=== PATIENT | male | born 1930 | race Caucasian/White ===

== ENCOUNTER 2016-03-12 09:01 | Inpatient (IN) | payer BC, OTHER ==
[~2016-03-12] VITALS: Ht 177.8 cm; Wt 88.6 kg
[~2016-03-12 09:01] MED LIST: ASPIRIN81 M1 PO; AVAPRO150 MG PO; CELEBREX200 MG; HYDROCODON-ACE1 EAC8 PO; PREVACID15 MG PO; TOPROL XL50 MG PO; ZOCOR80 M1 PO; [UNRECOGNIZED DRUG - OTHER] PO
[2016-03-12 09:49] LABS: HEMATOCRIT 41.8 % (38.0-50.0); MCH 32.7 PG (29.0-34.0); MCHC 33.5 G/DL (30.0-36.0); MCV 97.7 FL (86-99); MEAN PLAT.VOLUME 10.8 uM^3 (9.0-12.4); PLATELET COUNT 184 K/uL (156-360); RBC DIS.WIDTH-CV 13.8 % (11.8-14.6); RBC DIS.WIDTH-SD 47.7 % (39-53); RED BLOOD COUNT 4.28 M/uL (4.00-5.50); WHITE BLOOD COUNT 7.8 K/uL (4.1-10.2)
[2016-03-12 09:50] LABS: BASOPHIL COUNT 0.1 K/uL (0-0.1); EOSINOPHIL (%) 3.5 % (0-5); EOSINOPHIL COUNT 0.3 K/uL (0-0.3); IMMATURE GRANULOCYTE (%) 1.4 % (0.0-0.7); IMMATURE GRANULOCYTE COUNT 1.1 K/uL; LYMPHOCYTE COUNT 1.1 K/uL (1.0-2.8); MONOCYTE (%) 17.5 % (3-12); MONOCYTE COUNT 1.4 K/uL (0-0.8); NEUTROPHIL COUNT 4.9 K/uL (1.8-6.4)
[2016-03-12 10:00] LABS: ADD MIUA? NO; BILIRUBIN NEGATIVE; BLOOD NEGATIVE; COLOR YELLOW ((YELLOW)); GLUCOSE (STRIP) NEGATIVE; KETONES NEGATIVE; LEUKOCYTES NEGATIVE; NITRITE NEGATIVE; PROTEIN (STRIP) TRACE; SPECIFIC GRAVITY 1.015 (1.000-1.030); UCUL ADDED? NO; UROBILINOGEN 0.2 MG/DL (0.2-1.0)
[2016-03-12 10:00] LABS: INTER. NORMALIZED RATIO 1.1; PROTHROMBIN TIME 10.7 (9.2-11.2); PTT 27.1 (25-32)
[2016-03-12 10:09] LABS: AMPHETAMINE NEGATIVE (500 ng/mL); BARBITURATES NEGATIVE (200 ng/mL); BENZODIAZEPINES NEGATIVE (150 ng/mL); COCAINE NEGATIVE (150 ng/mL); INTERNAL CONTROLS VALID? YES; METHADONE NEGATIVE (200 ng/mL); METHAMPHETAMINE NEGATIVE (500 ng/mL); OPIATES (MORPHINE) NEGATIVE (100 ng/mL); OXYCODONE NEGATIVE (100 ng/mL); PHENCYCLIDINE NEGATIVE (25 ng/mL); PROPOXYPHENE NEGATIVE (300 ng/mL); THC CANNABINOIDS NEGATIVE (50 ng/mL); TRICYCLIC ANTIDEPRESSANTS NEGATIVE (300 ng/mL)
[2016-03-12 10:09] LABS: AMYLASE 55 IU/L (1-118); CHLORIDE 107 mEq/L (99-109); POTASSIUM 4.2 mEq/L (3.7-5.4); SODIUM 140 mEq/L (136-147)
[2016-03-12 10:10] LABS: GLUCOSE 64 mg/dL (70-99); TROP-I INTERPRETATION NEGATIVE; TROPONIN-I 0.01 ng/mL (0.0-0.30)
[2016-03-12 10:12] LABS: ANION GAP 8 MEQ/L (2-14)
[2016-03-12 10:14] LABS: GFR ESTIMATE (CALCULATED) > 59 mL/min/; SERUM ETHYL ALCOHOL < 10 mg/dL
[2016-03-12 10:15] LABS: SERUM ETHYL ALCOHOL < 10 mg/dL; UREA NITROGEN (BUN) 25 mg/dL (9-23)
[2016-03-12 10:17] LABS: LIPASE 12 U/L (1.0-51.0)
[2016-03-12] MEDS ORDERED: LOPRESSOR50 MG PO (11:17)
[2016-03-12] MEDS ORDERED: FINASTERIDE5 MG PO (11:17)
[2016-03-12] MEDS ORDERED: LASIX20 MG PO (11:17)
[2016-03-12] MEDS ORDERED: LIPITOR40 MG PO (11:18)
[2016-03-12] MEDS ORDERED: LYRICA50 MG PO (11:19)
[2016-03-12] MEDS ORDERED: ATROVENT H200 INHALA IH (11:19)
[2016-03-12] MEDS ORDERED: BREO ELLIPTA 21 EACH IH (11:20)
[2016-03-12] MEDS ORDERED: SINGULAIR10 MG PO (11:20)
[2016-03-12] MEDS ORDERED: BENZONATATE100 MG PO (11:20)
[2016-03-12] MEDS ORDERED: CLONIDINE HCL0.1 MG PO (11:21)
[2016-03-12] MEDS ORDERED: VITAMIN B12 100MCG PO (11:21)
[2016-03-12] MEDS ORDERED: AMLODIPINE BESYL5 MG PO (11:21)
[2016-03-12 12:15] LABS: POINT-OF-CARE METER ID UU13113702; POINT-OF-CARE USER ID NUTJLF39
[2016-03-12 13:07] LABS: HDL CHOLESTEROL 31 MG/DL (Desirable>=40); LDL CHOLESTEROL 61 mg/dL (Desirable<100); NON-HDL CHOLESTEROL 74 mg/dL (Desirable<160); TOTAL CHOLESTEROL 105 mg/dL (Desirable<200); TRIGLYCERIDES 63 MG/DL (Normal: <150)
[2016-03-12 13:28] LABS: Estimated Average Glucose 126 mg/dL (70-123)
[2016-03-12 13:36] VITALS: BP 172/79
[2016-03-12 15:42] VITALS: BP 162/80
[2016-03-12 17:48] VITALS: BP 162/80
[2016-03-12 20:00] VITALS: BP 139/67
[2016-03-13 00:01] VITALS: BP 137/73
[2016-03-13 03:38] VITALS: BP 142/74
[2016-03-13 07:53] VITALS: BP 150/78
[2016-03-13 11:49] VITALS: BP 138/70
[2016-03-13 15:54] VITALS: BP 143/71
[2016-03-13 19:26] VITALS: BP 161/79
[2016-03-13] MEDS ORDERED: CLOPIDOGREL75 MG PO (23:37)
[2016-03-14] VITALS: BP 153/75
[2016-03-14 03:40] VITALS: BP 149/71
[2016-03-14 07:14] VITALS: BP 171/75
[2016-03-14 11:11] VITALS: BP 145/71
== END 2016-03-14 14:55 | disposition home or self-care (01) | DRG 65 ==
LOC: EME 09:01 → EDOF 11:27 → 5WEST 13:19 → 5SOUTH 13:49 → 5WEST 13:49 → 5SOUTH 15:33
PROVIDERS: Emergency Medicine; Hospitalist
DX: I63.40 Cerebral infarction due to embolism of unspecified cerebral artery (principal); I50.32 Chronic diastolic (congestive) heart failure; R20.0 Anesthesia of skin; E78.5 Hyperlipidemia, unspecified; J45.909 Unspecified asthma, uncomplicated; I11.0 Hypertensive heart disease with heart failure; R29.810 Facial weakness; I25.10 Atherosclerotic heart disease of native coronary artery without angina pectoris; I35.0 Nonrheumatic aortic (valve) stenosis; N40.0 Benign prostatic hyperplasia without lower urinary tract symptoms
CPT/HCPCS: 70450; 70551; 80048; 80061; 81003; 82150; 82948; 83036; 83690; 84484; 85025; 85610; 85730; 86850; 86900; 86901; 92610 GN; 93306; 93880; 94640; 94640 76; 99202; 99281; 99285; G0480; J1650